=== PATIENT | female | born 1960 | race Caucasian/White ===

== ENCOUNTER 2019-09-03 22:18 | Emergency (ER) | payer BC ==
[~2019-09-03] VITALS: Ht 165.1 cm; Wt 65.9 kg
[~2019-09-03 22:18] MED LIST: EPI-PEN JR0.5 MG/ML IM; EPI-PEN1 MG/ML MR; EPIPEN 2-PAK1 MG/ML IM; FLEXERIL; MEDROL 4MG DOSPA4 MG PO; PAXIL 10MG10 MG PO; PREDNISONE20 MG PO; PRINZIDE 12.5 M1 TAB PO; TENORMIN100 MG PO; VTAMINC250TA; ZYRTEC5 MG PO
[2019-09-03 22:21] VITALS: TEMP 98.4
[2019-09-03] MEDS ORDERED: ZOCOR 10MG10 MG PO (22:31)
[2019-09-03] MEDS ORDERED: PREDNISONE20 MG PO (22:59)
[2019-09-04 00:33] VITALS: BP 147/89; PULSE 78
== END 2019-09-04 00:40 | disposition home or self-care (01) ==
LOC: COL.ER 22:18
DX: T78.40XA Allergy, unspecified, initial encounter (principal); I10 Essential (primary) hypertension; F17.210 Nicotine dependence, cigarettes, uncomplicated
CPT/HCPCS: C9113; J0171; J1100; J1200

== ENCOUNTER 2019-10-17 00:50 | Emergency (ER) | payer BC ==
[~2019-10-17] VITALS: Ht 165.1 cm; Wt 65.9 kg
[~2019-10-17 00:50] MED LIST changes: +ZOCOR 10MG10 MG PO
[2019-10-17 00:56] VITALS: TEMP 97.2
[2019-10-17] MEDS ORDERED: PREDNISONE20 MG PO (02:39)
[2019-10-17] MEDS ORDERED: NORVASC 5MG5 MG/TAB PO (02:57)
[2019-10-17 03:16] VITALS: BP 141/82; PULSE 72
== END 2019-10-17 03:18 | disposition home or self-care (01) ==
LOC: COL.ER 00:50
DX: T78.3XXA Angioneurotic edema, initial encounter (principal); J30.1 Allergic rhinitis due to pollen; F17.210 Nicotine dependence, cigarettes, uncomplicated; I10 Essential (primary) hypertension; E78.5 Hyperlipidemia, unspecified; Z79.899 Other long term (current) drug therapy
CPT/HCPCS: C9113; J0171; J1100; J1200

== ENCOUNTER 2021-08-04 04:58 | Emergency (ER) | payer BC ==
[~2021-08-04] VITALS: Ht 165.1 cm; Wt 68.2 kg
[~2021-08-04 04:58] MED LIST changes: +NORVASC 5MG5 MG/TAB PO
[2021-08-04 05:03] VITALS: TEMP 98.4
[2021-08-04] MEDS ORDERED: NORCO 325 MG-51 TAB PO (05:32)
[2021-08-04] MEDS ORDERED: MEDROL 4MG DOSPA4 MG PO (05:32)
[2021-08-04 05:45] VITALS: BP 179/113; PULSE 67
== END 2021-08-04 05:45 | disposition home or self-care (01) ==
LOC: COL.ER 04:58
DX: M54.30 Sciatica, unspecified side (principal); F17.210 Nicotine dependence, cigarettes, uncomplicated

== ENCOUNTER → 2021-09-24 | Outpatient (CLI) | payer BC ==
[~2021-09-24] MED LIST changes: +NORCO 325 MG-51 TAB PO
== END ==
LOC: COL.RAD 07:12
DX: M47.816 Spondylosis without myelopathy or radiculopathy, lumbar region (principal); M47.817 Spondylosis without myelopathy or radiculopathy, lumbosacral region; M51.26 Other intervertebral disc displacement, lumbar region; M51.27 Other intervertebral disc displacement, lumbosacral region; M48.061 Spinal stenosis, lumbar region without neurogenic claudication; M48.07 Spinal stenosis, lumbosacral region; G96.198 Other disorders of meninges, not elsewhere classified

== ENCOUNTER → 2021-11-20 | Outpatient (CLI) | payer BC | LOC: MHCPAIN 13:05 | DX: M53.3 Sacrococcygeal disorders, not elsewhere classified (principal); M51.36 Other intervertebral disc degeneration, lumbar region; M47.816 Spondylosis without myelopathy or radiculopathy, lumbar region | CPT/HCPCS: G0463 ==

== ENCOUNTER → 2021-12-10 | Outpatient (CLI) | payer BC | LOC: MHCPAIN 12:55 | DX: M53.3 Sacrococcygeal disorders, not elsewhere classified (principal); M47.817 Spondylosis without myelopathy or radiculopathy, lumbosacral region | CPT/HCPCS: J3301; Q9967 ==

== ENCOUNTER → 2022-04-05 | Outpatient (CLI) | payer OTHER, BC | LOC: MHCPAIN 12:49 | DX: M47.817 Spondylosis without myelopathy or radiculopathy, lumbosacral region (principal); M54.50 Low back pain, unspecified; M53.3 Sacrococcygeal disorders, not elsewhere classified | CPT/HCPCS: J1100; J2250; J3010 ==

== ENCOUNTER → 2023-02-17 | Outpatient (CLI) | payer OTHER, BC ==
[~2023-02-17] MED LIST changes: +Iohexol 300 - 10 ML VIAL ONE; +Lidocaine PF 2% (20 MG/ML) 2 ML VIAL ONE
== END ==
LOC: MHCPAIN 10:05
DX: M47.817 Spondylosis without myelopathy or radiculopathy, lumbosacral region (principal); M54.16 Radiculopathy, lumbar region
CPT/HCPCS: J1100; Q9967

== ENCOUNTER → 2023-06-10 | Outpatient (CLI) | payer OTHER ==
[~2023-06-10] MED LIST changes: -Iohexol 300 - 10 ML VIAL ONE; -Lidocaine PF 2% (20 MG/ML) 2 ML VIAL ONE
== END ==
LOC: COL.RAD 13:57
DX: Z12.2 Encounter for screening for malignant neoplasm of respiratory organs (principal); Z87.891 Personal history of nicotine dependence